=== PATIENT | male | born 1980 | race Caucasian/White ===

== ENCOUNTER 2017-10-10 17:56 | Emergency (ER) | payer MEDICARE, MEDICAID, SELFPAY ==
[2017-10-10 17:58] VITALS: BP 158/101; PULSE 97; RESP 20; TEMP 37.6; O2SAT 95; BMI 39.7
[2017-10-10 18:40] VITALS: BP 139/88; PULSE 88; RESP 17; O2SAT 95
--- NOTE | 2017-10-10 18:40 | EKG12_ITS ---
Test Reason : CP Blood Pressure : / mmHG Vent. Rate : 088 BPM Atrial Rate : 088 BPM P-R Int : 182 ms QRS Dur : 114 ms QT Int : 396 ms P-R-T Axes : 084 101 011 degrees QTc Int : 479 ms Normal sinus rhythm Nonspecific ST abnormality Abnormal ECG Confirmed by LESLEY MARRERO ([id number]), fan mail editor JONATHAN SUMMERS ([id number]) on 10/14/2017 9:33:48 AM Referred By: KRISTIE Confirmed By:LESLEY MARRERO
--- NOTE | 2017-10-10 18:45 | RAD_ITS ---
STUDY: X-RAY CHEST REASON FOR EXAM: Male, 36 years old. Dyspnea TECHNIQUE: Frontal and lateral views COMPARISON: April 20, 2016. FINDINGS: Sternotomy wires over the mediastinum. The lungs are clear and expanded. There is no demonstrated pleural abnormality. Normal size heart. Normal mediastinum and kavin. Normal visualized pulmonary arteries. Normal visualized aortic arch and descending thoracic aorta. Mild degenerative changes of the thoracic spine. Normal visualized ribs, clavicles, and shoulders. There is no demonstrated abnormality of the visualized soft tissue structures of the upper abdomen. RAD/Chest PA and Lateral IMPRESSION: Normal x-ray examination of the chest. Electronically Signed: Madi Echeverria DO at 19:07 EST Tel [phone], Service support ,
--- NOTE | 2017-10-10 18:52 | ED.VISSUMM ---
- ER Visit Summary Date of Service: 10/10/17 Chief Complaint: Last evening patient reports weakness right and left hand and weakness right and left lower extremity. He also reports 15 pound weight gain with complaint of dyspnea on exertion and orthopnea. History of Present Illness: The patient is a 36 M who has history of myocarditis and restrictive pericarditis. He underwent. Pericardiectomy secondary to restrictive pericarditis 4-4-1/2 years ago. He states the neurologic symptoms started hours after his epidural injection. He believes this was secondary to the injection and reason he did not come in last evening. He contacted Dr. Fletcher who did the injection stated that his symptoms were not a result of the injection. He reports the neurologic symptoms have resolved. He denies fever, night sweats, but does admit to chills and weight gain. He denies any chest discomfort. He does complain of dyspnea, dyspnea on exertion and orthopnea. He does report a 15 pound weight gain over the past 1+ weeks and swelling of his lower extremities. He denies any abdominal pain, nausea, vomiting or diarrhea. He denies any dysuria, frequency, urgency hematuria. He denies any myalgias arthralgias or swelling of his joints. Physical Examination: Patient's vitals are remarkable for an elevated blood pressure 158/87. He is not hypoxic. Head is atraumatic normocephalic. Pupils are equal round reactive. Extraocular muscles are intact. TMs are pearly white with landmarks noted. Nares patent with no drainage. Posterior pharynx without erythema or exudate. Uvula is midline. There is no dysphonia or dysphasia. Trachea is midline. There is no stridor with auscultation of the neck. Heart is regular without murmur, gallop or rub. S1 and S2 are normal. Lungs are clear to auscultation with good movement of air bilaterally. Abdomen is soft nontender with no paraspinal hepatosplenomegaly. There is no hepato-jugular distention. There is no JVD. There is 1+ pitting edema of both right and left lower extremity from the knee down. Patient is alert and oriented ?3. Motor is 5 over 5. Sensory is intact. DTRs are symmetric with no clonus or Babinski sign. Cranial 2 through 12 are intact. Cerebellar testing is normal. Test Results: White count is 14.7 thousand with 77 segs. Electrode panel was marked for glucose of 226. Troponin less than 0.02. BNP 19. Two-view chest x-ray interpreted by me as negative. EKG revealed a sinus rhythm with a rate of 88 and unchanged from May 16, 2014. Emergency Department Course and Treatment: EKG, chest and blood work was obtained to assess his dyspnea, dyspnea on exertion and orthopnea. CT was not obtained since he had bilateral symptoms and complained of generalized weakness and not focal symptoms. Treatment Plan: Follow-up with Dr. Rei Andrew Disposition: Discharge to home with family Impression: Dyspnea with weight gain unknown etiology Paresthesia and weakness of unknown etiology Hyperglycemia nondiabetic History of myocarditis and restrictive pericarditis This note was generated with [employer] dictation software. It may contain incorrect words, spelling, and punctuation that were not noted in review of the chart prior to signing ED Disposition - Plan for ED Patient: Disposition: Home or Assisted Living Chief Complaint: Chest Pain Instructions: ED Dyspnea Shortness of Breath, ED Hyperglycemia New Susp Diabetes, ED Weakness [facility] Referrals: Eulalio Dos Santos, [Primary Care Provider] - 3-5 Days if not improving Additional Instructions: Follow-up with Rei Anderw as needed
--- NOTE | 2017-10-10 18:57 | ED.DCSUM_ITS ---
- ER Visit Summary Date of Service: 10/10/17 Chief Complaint: Last evening patient reports weakness right and left hand and weakness right and left lower extremity. He also reports 15 pound weight gain with complaint of dyspnea on exertion and orthopnea. History of Present Illness: The patient is a 36 M who has history of myocarditis and restrictive pericarditis. He underwent. Pericardiectomy secondary to restrictive pericarditis 4-4-1/2 years ago. He states the neurologic symptoms started hours after his epidural injection. He believes this was secondary to the injection and reason he did not come in last evening. He contacted Dr. Fletcher who did the injection stated that his symptoms were not a result of the injection. He reports the neurologic symptoms have resolved. He denies fever, night sweats, but does admit to chills and weight gain. He denies any chest discomfort. He does complain of dyspnea, dyspnea on exertion and orthopnea. He does report a 15 pound weight gain over the past 1+ weeks and swelling of his lower extremities. He denies any abdominal pain, nausea, vomiting or diarrhea. He denies any dysuria, frequency, urgency hematuria. He denies any myalgias arthralgias or swelling of his joints. Physical Examination: Patient's vitals are remarkable for an elevated blood pressure 158/87. He is not hypoxic. Head is atraumatic normocephalic. Pupils are equal round reactive. Extraocular muscles are intact. TMs are pearly white with landmarks noted. Nares patent with no drainage. Posterior pharynx without erythema or exudate. Uvula is midline. There is no dysphonia or dysphasia. Trachea is midline. There is no stridor with auscultation of the neck. Heart is regular without murmur, gallop or rub. S1 and S2 are normal. Lungs are clear to auscultation with good movement of air bilaterally. Abdomen is soft nontender with no paraspinal hepatosplenomegaly. There is no hepato- jugular distention. There is no JVD. There is 1+ pitting edema of both right and left lower extremity from the knee down. Patient is alert and oriented ?3. Motor is 5 over 5. Sensory is intact. DTRs are symmetric with no clonus or Babinski sign. Cranial 2 through 12 are intact. Cerebellar testing is normal. Test Results: White count is 14.7 thousand with 77 segs. Electrode panel was marked for glucose of 226. Troponin less than 0.02. BNP 19. Two-view chest x- ray interpreted by me as negative. EKG revealed a sinus rhythm with a rate of 88 and unchanged from May 16, 2014. Emergency Department Course and Treatment: EKG, chest and blood work was obtained to assess his dyspnea, dyspnea on exertion and orthopnea. CT was not obtained since he had bilateral symptoms and complained of generalized weakness and not focal symptoms. Treatment Plan: Follow-up with Dr. Rei Andrew Disposition: Discharge to home with family Impression: Dyspnea with weight gain unknown etiology Paresthesia and weakness of unknown etiology Hyperglycemia nondiabetic History of myocarditis and restrictive pericarditis This note was generated with [employer] dictation software. It may contain incorrect words, spelling, and punctuation that were not noted in review of the chart prior to signing ED Disposition - Plan for ED Patient: Disposition: Home or Assisted Living Chief Complaint: Chest Pain Instructions: ED Dyspnea Shortness of Breath, ED Hyperglycemia New Susp Diabetes, ED Weakness [facility] Referrals: Eulalio Dos Santos, [Primary Care Provider] - 3-5 Days if not improving Additional Instructions: Follow-up with Rei Andrew as needed
[2017-10-10 18:58] LABS: Absolute Lymphocyte Count 1.91 X10^3/ul (0.83-4.51); Absolute Neutrophil Count 11.2 X10^3/uL (2.0-7.7); Basophil# 0.04 X10^3/uL; Basophil% 0.3 % (0-1); Eosinophil# 0.03 X10^3/uL; Eosinophils% 0.2 % (0-5); Hematocrit 43.2 % (40-54); Hemoglobin 15.3 g/dl (13.0-16.5); Lymphocyte # 1.91 X10^3/ul (4.0); Mean Corp Hgb Conc 35.4 g/gl (32-36); Mean Corpuscular Hgb 30.1 pg (27.0-32.0); Mean Platelet Vol. 10.7 fl (6.2-12.0); Monocyte# 1.28 X10^3/uL; Monocyte% 8.7 % (0-10); Neutrophil # 11.24 X10^3/uL (2.7-7.7); Neutrophil % 76.5 % (47-70); Platelet Count 256 K/mm3 (150-450); RBC Distribution Width SD 39.6 fl (35.1-43.9); Red Blood Count 5.08 M/mm3 (4.6-6.2); White Blood Count 14.7 K/mm3 (4.4-11.0)
[2017-10-10 18:59] LABS: POSITIVE COUNT NO; POSITIVE DIFFERENTIAL NO; POSITIVE MORPHOLOGY NO
[2017-10-10 19:22] LABS: Anion Gap 9 (5-15); BUN 11 mg/dL (7-18); BUN/Creat Ratio 11.1 RATIO (10-20); Calcium,Total 7.9 mg/dL (8.5-10.1); Chloride 100 mmol/L (98-107); Creatinine, Serum 0.99 mg/dL (0.70-1.30); EST Glomerular Filtration Rate 90 mL/min (>60); Est Glom Filt Rate - Afr Amer 109 mL/min (>60); Estimated Creatinine Clearance 106.51 ml/min; Glucose 226 mg/dL (70-110); Potassium 3.5 mmol/L (3.5-5.1); Sodium Level 138 mmol/L (136-145)
[2017-10-10 19:32] LABS: BNP,B-Type NATRIURETIC PEPTIDE 19.1 pg/mL (0-100)
[2017-10-10 19:34] VITALS: BP 125/88; PULSE 80; RESP 16; O2SAT 93
[2017-10-10 20:12] VITALS: BP 143/83; PULSE 90; RESP 23; O2SAT 95
[2017-10-10 21:07] VITALS: BP 138/60; PULSE 92; RESP 17; RESP 20; O2SAT 95; O2SAT 98
== END 2017-10-10 21:08 | disposition home or self-care (01) ==
PROVIDERS: Emergency Provider Emergency Medicine; Family Provider Student in an Organized Health Care Education/Training Program; PCP Student in an Organized Health Care Education/Training Program
DX: R06.00 Dyspnea, unspecified (principal); R63.5 Abnormal weight gain; R20.2 Paresthesia of skin; R53.1 Weakness; R73.9 Hyperglycemia, unspecified; Z86.79 Personal history of other diseases of the circulatory system; Z87.891 Personal history of nicotine dependence; Z79.82 Long term (current) use of aspirin; Z79.899 Other long term (current) drug therapy
CPT/HCPCS: 71046; 80048; 83880; 84484; 85025; 93005; 99285; A4216

== ENCOUNTER 2017-11-08 22:58 | Emergency (ER) | payer MEDICARE, MEDICAID, SELFPAY ==
[2017-11-08 22:59] VITALS: BP 150/103; PULSE 77; RESP 15; TEMP 36.8; O2SAT 95; BMI 38.0
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
[2017-11-08] MEDS: Lidocaine/Epi/Tetracaine 50 ML 1 APPLIC TOPICAL (23:30)
[2017-11-09] MEDS: Diphth,Pertuss(Acell),Tet Vac 0.5 ML Vial IM (00:04)
--- NOTE | 2017-11-09 00:08 | ED.DEP ---
ED Disposition - Plan for ED Patient: Disposition: Home or Assisted Living Chief Complaint: Upper Extremity Injury Instructions: ED Laceration Hand Referrals: Eulalio Dos Santos DO [Primary Care Provider] - 10 Day for suture removal Additional Instructions: Keep hand wound clean. Clean daily with soap and water or peroxide and water. Apply antibiotic ointment once daily. Return if any signs of infection such as pus, redness or swelling. Suture removal in 10 days.
[2017-11-09 00:26] VITALS: PULSE 76; RESP 16; O2SAT 98
== END 2017-11-09 00:27 | disposition home or self-care (01) ==
PROVIDERS: Emergency Provider Emergency Medicine; Family Provider Student in an Organized Health Care Education/Training Program; PCP Student in an Organized Health Care Education/Training Program
DX: S61.412A Laceration without foreign body of left hand, initial encounter (principal); Z23 Encounter for immunization; W32.0XXA Accidental handgun discharge, initial encounter; Y93.89 Activity, other specified; Y92.008 Other place in unspecified non-institutional (private) residence as the place of occurrence of the external cause; Y99.8 Other external cause status
CPT/HCPCS: 12002; 90471; 90715; 99284

== ENCOUNTER 2018-06-17 16:39 | Emergency (ER) | payer MEDICARE, SELFPAY ==
[2018-06-17 16:39] VITALS: BP 139/97; PULSE 92; RESP 16; TEMP 36.1; O2SAT 98; BMI 38.2
--- NOTE | 2018-06-17 17:12 | RAD_ITS ---
STUDY: X-RAY - RIGHT ANKLE REASON FOR EXAM: Male, 37 years old. Pain TECHNIQUE: 3 view(s) of the ankle. COMPARISON: None. FINDINGS: Normal visualized distal tibia and fibula. Normal medial and lateral malleoli. Normal tibiotalar articulation and ankle mortise. Normal visualized talus and calcaneus. The visualized subtalar, talonavicular, calcaneocuboid and tarsal articulations are normal. The soft tissue structures are unremarkable. RAD/Ankle min 3 Views IMPRESSION: Normal x-ray examination of the ankle. Electronically Signed: Liam Rajput MD at 17:34 EDT , Service support ,
--- NOTE | 2018-06-17 17:12 | RAD_ITS ---
STUDY: X-RAY - RIGHT TIBIA AND FIBULA REASON FOR EXAM: Male, 37 years old. Pain TECHNIQUE: 3 view(s) of the tibia and fibula were obtained. COMPARISON: None. FINDINGS: Normal visualized tibia. Normal visualized fibula. The soft tissue structures are unremarkable. RAD/Tibia & Fibula 2 Views IMPRESSION: Normal x-ray examination of the tibia and fibula. Electronically Signed: Liam Rajput MD at 17:34 EDT , Service support ,
--- NOTE | 2018-06-17 17:13 | ED.VISSUMM ---
- ER Visit Summary Date of Service: 06/17/18 Chief Complaint: Right ankle injury History of Present Illness: The patient is a 37 M who presents for right ankle injury that occurred prior to presentation. Patient missed the last step in his basement, rolling his ankle and hitting his elbow against the wall. He was able to bear weight afterwards but states it felt really funny. He has pain and swelling in the right ankle and just distal to the right knee. He also scraped his elbow. He denies any other injuries, including head trauma, neck or back pain. He has a history of a prior right tibia fracture and states this feels very similar. Patient has history of congestive heart failure. He is not on any blood thinners. Physical Examination: Patient is well-nourished well-developed sitting in bed in no distress. Afebrile and hemodynamically stable. Full range of motion of the upper extremities., Small abrasion without any hemorrhage to the right posterior elbow. No deformities. Right lower extremity shows mild deformity and swelling over the lateral malleolus. Tenderness to the posterior edge of the lateral and medial malleolus. DP pulses are 2+ and symmetric. Abrasion to the right proximal anterior tibia. No tenderness to palpation or deformity of the right knee. No abnormalities to examination of the left lower extremity. Station and motor function are intact bilaterally. Patient is able to fully extend the right leg and lifted off the bed. Test Results: Clinical Impression(s) from Imaging Studies Ankle X-Ray 06/17/18 17:12 IMPRESSION: Normal x-ray examination of the ankle. Electronically Signed: Liam Rajput MD at 17:34 EDT , Service support , Tibia/Fibula X-Ray 06/17/18 17:12 IMPRESSION: Normal x-ray examination of the tibia and fibula. Electronically Signed: Liam Rajput MD at 17:34 EDT , Service support , Emergency Department Course and Treatment: Patient was offered and declined pain medications. Ice pack was applied to the right ankle. Imaging was performed and showed no fracture of the tib-fib or the ankle. Because patient has findings concerning for a severe sprain, he was placed in a walking boot. He has established care with a investment representative who managed his prior ankle fracture, and he will follow-up with this doctor within the next few days. Patient was discharged home. Treatment Plan: [] Disposition: [] Impression: Right ankle sprain This note was generated with [employer] dictation software. It may contain incorrect words, spelling, and punctuation that were not noted in review of the chart prior to signing ED Disposition - Plan for ED Patient: Disposition: Home or Assisted Living Chief Complaint: Lower Extremity Injury Instructions: ED Sprain Ankle W X Ray Referrals: Eulalio Dos Santos DO [Primary Care Provider] - Kameron Carrillo DPM [STAFF PHYSICIAN] - 3-5 Days Additional Instructions: Keep your leg elevated and ice it 3-4 times a day for 15 minutes each time. Wear the walking boot for comfort. Follow-up with your investment representative this week for reevaluation. Use [id number] pain medication as needed for pain. If you have any worsening of your condition or any new concerning symptoms, please return immediately to the emergency department for another evaluation.
--- NOTE | 2018-06-17 18:37 | ED.DEP ---
ED Disposition - Plan for ED Patient: Disposition: Home or Assisted Living Chief Complaint: Lower Extremity Injury Instructions: ED Sprain Ankle W X Ray Referrals: Eulalio Dos Santos DO [Primary Care Provider] - Kameron Carrillo DPM [STAFF PHYSICIAN] - 3-5 Days Additional Instructions: Keep your leg elevated and ice it 3-4 times a day for 15 minutes each time. Wear the walking boot for comfort. Follow-up with your information systems administrator this week for reevaluation. Use [id number] pain medication as needed for pain. If you have any worsening of your condition or any new concerning symptoms, please return immediately to the emergency department for another evaluation.
== END 2018-06-17 18:56 | disposition home or self-care (01) ==
PROVIDERS: Emergency Provider Emergency Medicine; Family Provider Student in an Organized Health Care Education/Training Program; PCP Student in an Organized Health Care Education/Training Program
DX: S93.401A Sprain of unspecified ligament of right ankle, initial encounter (principal); S50.311A Abrasion of right elbow, initial encounter; X50.1XXA Overexertion from prolonged static or awkward postures, initial encounter; W22.09XA Striking against other stationary object, initial encounter; Y93.9 Activity, unspecified; Y92.008 Other place in unspecified non-institutional (private) residence as the place of occurrence of the external cause; I50.9 Heart failure, unspecified; Z79.82 Long term (current) use of aspirin; Z79.899 Other long term (current) drug therapy
CPT/HCPCS: 73590; 73610; 99283

== ENCOUNTER 2020-08-17 23:01 | Emergency (ER) | payer MEDICARE, SELFPAY ==
[2020-08-17 23:02] VITALS: BP 175/114; PULSE 90; RESP 16; TEMP 36.4; O2SAT 100; BMI 37.3
--- NOTE | 2020-08-17 23:09 | ED.VIS.GEN ---
History of Present Illness Chief Complaint: Upper Extremity Injury Informant: Patient Onset: Yesterday Context: Gradual Onset Timing: Continuous Current Severity: Moderate Maximum Severity: Moderate Narrative: Patient is a 39-year-old male with history of CHF presents to the emergency department with right forearm injury. Patient states he was in [place]. He states he slipped and fell. He landed striking his forearm on a rock. Since then, has had some pain. He states it hurts to move. He denies any head injury. He denies any nausea or vomiting. He denies any other systemic symptoms. He is otherwise been in his normal state of health. Prior similar symptoms: No Recent Illness/Hospitalization: No Past Medical History - Allergies and Home Meds Allergies/Adverse Reactions: Allergies adhesive Adverse Reaction (Verified 08/17/20 23:04) Unknown CONTRAST DYE FOR MRI Allergy (Uncoded 08/17/20 23:04) Hives Primary Care Physician: Eulalio Dos Santos DO [Primary Care Provider] - Prior records reviewed: Yes Past Medical History: - - CHF, hypertension Surgical History: noncontributory Smoking Status: Never smoker - Family History Maternal Family History: Reports: No pertinent history Review of Systems General: Denies: Chills, Fever, Sweats Eyes: Denies: Visual changes - bilaterally, Diplopia ENT: Denies: Rhinorrhea, Sore throat Cardiovascular: Denies: Chest pain, Palpitations Respiratory: Denies: Dyspnea, Cough, Dyspnea on exertion Gastrointestinal: Denies: Abdominal pain, Nausea, Vomiting, Diarrhea, Melena, Hematochezia Genitourinary: Denies: Dysuria, Hematuria, Frequency Musculoskeletal: Reports: Myalgias. Denies: Back pain, Extremity Pain Skin: Denies: Rash, Wounds Neurological: Denies: Headache, Weakness, Numbness Physical Exam Vital Signs/Narrative: Vital Signs Temp Pulse Resp BP Pulse Ox 08/17/20 23:02 97.6 F L 90 16 175/114 H 100 Inital Vital Signs reviewed: Yes General: Well nourished, Well developed, No Acute Distress Head: Normocephalic, Atraumatic Eyes: Perrl, EOMI ENT: Moist mucous membranes, No rhinorrhea Neck: Supple, Nontender Cardiovascular: Regular rate, Regular rhythm, No murmurs Respiratory: No distress, CTA bilaterally, Chest nontender Abdomen: Soft, Nontender, Nondistended, Normal bowel sounds Back: Nontender, Normal Inspection Extremities: No edema, Tenderness - Tenderness over the right lateral forearm. Small hematoma. Normal pulses. Pain with palpation of motion. Compartments soft. Skin: Normal color, No rash Neurological: Alert, Oriented x3, Cranial nerves II-XII grossly intact, Normal Strength, Normal Sensation Psychological: Normal affect, Normal Mood Diagnostic/Tx/Re-eval - Medical Decision Making Patient presents with forearm injury. He has no evidence of compartment syndrome. His pulses are normal. Sensation is preserved. Plain films were obtained of the forearm. They were reviewed by myself and the radiologist. There is no evidence of acute fracture dislocation. I do feel her symptoms are secondary to contusion. Patient will continue ice and elevation. He will be discharged. Impression 1. Right forearm contusion ED Disposition - Plan for ED Patient: Instructions: ED Contusion, Upper Extremity Referrals: Eulalio Dos Santos DO [Primary Care Provider] -
--- NOTE | 2020-08-17 23:10 | RAD_ITS ---
STUDY: X-RAY - RIGHT RADIUS AND ULNA REASON FOR EXAM: Male, 39 years old. FALL. TECHNIQUE: 2 view(s) of the forearm. COMPARISON: None. FINDINGS: There is visualized mild soft tissue edema. Normal visualized radius. Normal visualized ulna. RAD/Forearm 2 Views IMPRESSION: There is mild soft tissue edema. There is no visualized fracture. Electronically Signed: Sapphire Liz MD at 23:28 EST Tel , Service support ,
[2020-08-17 23:15] VITALS: BP 151/96; PULSE 82; RESP 16; O2SAT 98
== END 2020-08-17 23:36 | disposition home or self-care (01) ==
LOC: ED 23:33
PROVIDERS: Emergency Provider Emergency Medicine; PCP Student in an Organized Health Care Education/Training Program
DX: S50.11XA Contusion of right forearm, initial encounter (principal); W01.0XXA Fall on same level from slipping, tripping and stumbling without subsequent striking against object, initial encounter
CPT/HCPCS: 73090; 99282

== ENCOUNTER → 2020-09-28 14:32 | Outpatient (CLI) | payer MEDICARE, SELFPAY ==
[2020-09-28 17:14] LABS: Amphetamine Urine VISTA NEGATIVE (<1000 ng/mL); Barbiturate Urine VISTA NEGATIVE (< 200 ng/mL); Benzodiazepine Urine VISTA NEGATIVE (< 200 ng/mL); Cocaine Urine VISTA NEGATIVE (< 300 ng/mL); Ecstacy Urine VISTA NEGATIVE (< 500 ng/mL); Methadone Urine VISTA NEGATIVE (< 300 ng/mL); PCP Urine VISTA NEGATIVE (< 25 ng/mL); THC Urine VISTA NEGATIVE (< 50 ng/mL); Vista UDS pH Range 6
== END ==
PROVIDERS: PCP Student in an Organized Health Care Education/Training Program; Visit Provider Anesthesiology Pain Medicine
DX: F11.20 Opioid dependence, uncomplicated (principal)
CPT/HCPCS: 80307

== ENCOUNTER 2021-12-16 11:14 | Emergency (ER) | payer MEDICARE, SELFPAY ==
[2021-12-16 11:15] VITALS: BP 184/114; PULSE 78; RESP 16; TEMP 36.4; O2SAT 98; BMI 38.0
--- NOTE | 2021-12-16 11:37 | EDS_ITS ---
HPI <ADEN Camacho - Last Filed: 12/16/21 11:43> History of Present Illness Chief Complaint: Upper Extremity Injury Narrative Narrative: 41-year-old male with a significant heart history presents the emerge part with left forearm pain. Patient was doing some construction, he lifted a 2 x 4 and felt a pull to his left forearm. Patient states that the pain is getting much worse and is here for evaluation. Patient denies any other trauma, patient states that Motrin and Tylenol was hurting worse. Patient has difficulty letting is not having as well as performing random movements with his left arm. PFSH <ADEN Camacho - Last Filed: 12/16/21 11:43> PFS Home Medications carvedilol 25 mg PO BID 09/22/13 [History Last Taken Unknown] gabapentin 300 mg PO 4X/DAY 09/22/13 [History Last Taken Unknown] lisinopril 5 mg PO DAILY 09/22/13 [History Last Taken Unknown] probenecid-colchicine 0.6 mg PO BID 09/22/13 [History Last Taken Unknown] spironolactone 25 mg PO BID 09/22/13 [History Last Taken Unknown] fentanyl 25 mcg TRANSDERM. Q72H 05/16/14 [History Last Taken Unknown] Ibuprofen [Motrin] 800 mg PO TID PRN PRN 04/20/16 [History Last Taken Unknown] Potassium Chloride [Klor-Con M20] 20 meq PO DAILY 04/20/16 [History Last Taken Unknown] aspirin 81 mg PO DAILY 04/20/16 [History Last Taken Unknown] fluoxetine 20 mg PO DAILY 04/20/16 [History Last Taken Unknown] fluticasone propionate 2 spray NASAL DAILY 04/20/16 [History Last Taken Unknown] melatonin 5 mg PO QHS 04/20/16 [History Last Taken Unknown] cyclobenzaprine 10 mg PO TID 10/10/17 [History Last Taken Unknown] ezetimibe 10 mg PO DAILY 10/10/17 [History Last Taken Unknown] pravastatin 80 mg PO QHS 10/10/17 [History Last Taken Unknown] trazodone 150 mg PO QHS 10/10/17 [History Last Taken Unknown] naproxen [Naprosyn] 500 mg PO BID PRN #20 tab 12/16/21 [Rx Last Taken Unknown] Allergy/AdvReac Type Severity Reaction Status Date / Time adhesive AdvReac Unknown Verified 12/16/21 11:16 CONTRAST DYE FOR MRI Allergy Hives Uncoded 12/16/21 11:16 Social History Smoking Status: Former smoker ROS <ADEN Camacho - Last Filed: 12/16/21 11:43> ROS ED ROS Narrative Constitutional: Negative for fever, chills, weight loss or gain, weakness Eyes: Negative for vision loss, vision change, double vision ENT: Negative for any hearing changes, ringing in the ears, discharge, pain Nose: Negative for any congestion, runny nose, sinus pain, allergies Throat: Negative for any sore throat, swelling, voice changes, Cardiovascular: Negative for any chest pain, tightness, palpitations, racing heartbeat Respiratory: Negative for any cough, sputum production, hemoptysis, shortness of breath, shortness of breath on exertion, Gastrointestinal: Negative for any abdominal pain, nausea, vomiting, diarrhea, constipation, blood in stool, blood in vomit : Negative for any urinary frequency, incontinence, dysuria, retention, blood in urine Muscle skeletal: Negative for any muscle joint pain, stiffness, myalgias, arthralgias, neck pain, back pain. Positive for left forearm pain Neurological: Negative for any headache, dizziness, syncope, numbness or tingling Skin: Negative for any rashes, lumps, itching, abrasions, lacerations Psychiatric: Negative for any depression, anxiety, stress, suicidal ideation, homicidal ideation Hematologic: Negative for any easy bruising, excessive bruising, easy bleeding Allergies: Negative for any eczema, hives, rash EXAM <ADEN Camacho - Last Filed: 12/16/21 11:43> Physical Exam Const Vital Signs: 12/16/21 11:15 Temperature 97.6 F L Temperature Source Temporal Pulse Rate 78 Respiratory Rate 16 Blood Pressure 184/114 H Blood Pressure Mean 137 Pulse Ox 98 Oxygen Delivery Method Room Air Positive well nourished and well developed General Appearance ED: well developed HEENT normocephalic and atraumatic Eyes PERRL and EOMs intact bilaterally Neck full ROM and supple Chest Wall inspection of chest normal Resp normal respiratory effort and clear to auscultation bilaterally Cardio regular rate, regular rhythm and no murmurs GI non-tender and non-distended Auscultation: normoactive bowel sounds Palpation: soft Back/Spine no CVA tenderness Extremity full ROM Extremity Narrative: Patient has tenderness to the anterior forearm worse along the radial aspect. Around the antecubital area. Patient is able to flex at the elbow with no discomfort. Patient has full range of motion of his hand and fingers. Patient has +2 radial pulse. Patient's physical examination is consistent with a muscle strain. Negative for any ecchymosis, edema. Negative for any compartmentalized syndromes. Neuro oriented x3 Sensorium / Orientation: alert and oriented to person [facility] <ADEN Camacho - Last Filed: 12/16/21 11:43> [facility] Narrative Medical decision making narrative: Patient appears well, patient appears nontoxic, vital signs are stable. Patient presents the emerge department with left forearm pain. Patient's physical examination is consistent with a muscle strain, negative for any osseous abnormality, I do not believe that radiologic exams are necessary. Patient be given a pain medicine here, patient be given a prescription for anti-inflammatories, a sling. Patient will perform gentle stretching, ice heat and follow-up with orthopedics as needed. Patient struck to rest the extremity instructed return if any worsening symptoms. Negative for any neurological focal deficits Lab Data Attestation: I reviewed the patient's lab results. <Dr. Drake Jang MD - Last Filed: 12/16/21 11:47> [facility] Narrative Medical decision making narrative: I have personally performed a face to face assessment of the patient and have reviewed the LUIS Note. I performed a substantive portion of the visit including all aspects of the following. My benito findings include: History is [41-year-old male after lifting a piece of wood felt a pop and pulling and discomfort in his proximal left forearm. He is right-hand dominant. No prior surgery. No other trauma. Complaining of pain.] Exam is [well-appearing middle-aged male. No acute distress. Blood pressure elevated. Lungs are clear. Heart regular rhythm. Left forearm he has tenderness on the proximal palmar flexor muscles of his forearm. He has 5 out of 5 media assistant strength in his left hand. Normal radial pulse. He has full flexion- extension of his left elbow. He has normal range of motion to his shoulder. There is no bony deformity. No dislocation. Mild soft tissue tenderness consistent with a myofascial strain. There is no deficit like a torn muscle.] Medical Decision Making [ice. Anti-inflammatories follow-up if not improving.] Other additions or changes: [None] Discharge Plan Triage Chief Complaint: Upper Extremity Injury ED Midlevel Provider: Kenyon Nolasco ED Provider: Drake Jang Dx/Rx/DC Orders Clinical Impression: Muscle strain of forearm Instructions: ED Muscle Strain, Extremity Prescriptions: New naproxen [Naprosyn] 500 mg tablet 500 mg PO BID PRN (Reason: pain) Qty: 20 RF: 0 No Action carvedilol 25 MG tablet 25 mg PO BID RF: 0 probenecid-colchicine 1 EACH tablet 0.6 mg PO BID RF: 0 spironolactone 25 MG tablet 25 mg PO BID RF: 0 gabapentin 300 MG capsule 300 mg PO 4X/DAY RF: 0 lisinopril 5 MG tablet 5 mg PO DAILY RF: 0 fentanyl 25 MCG patch 25 mcg TRANSDERM. Q72H RF: 0 aspirin 81 MG tablet,chewable 81 mg PO DAILY RF: 0 fluoxetine 20 MG capsule 20 mg PO DAILY RF: 0 fluticasone propionate 1 SPRAY spray,suspension 2 spray NASAL DAILY RF: 0 melatonin 5 MG capsule 5 mg PO QHS RF: 0 Ibuprofen [Motrin] 800 MG tablet 800 mg PO TID PRN PRN (Reason: Pain) RF: 0 Potassium Chloride [Klor-Con M20] 20 MEQ Tab.Er.Prt 20 meq PO DAILY RF: 0 cyclobenzaprine 10 MG tablet 10 mg PO TID RF: 0 pravastatin 80 MG tablet 80 mg PO QHS RF: 0 trazodone 150 MG tablet 150 mg PO QHS RF: 0 ezetimibe 10 MG tablet 10 mg PO DAILY RF: 0 Primary Care Provider: Eulalio Dos Santos Referrals: Eulalio Dos Santos DO [Primary Care Provider] - Felipe Nichols DO [STAFF PHYSICIAN] - 3-5 Days if not improving Activity Restrictions/Additional Instructions: Please ice the extremity, rest. Use anti-inflammatory Print Language: Kyrgyz Disposition Disposition: Home, Self Care
[2021-12-16] MEDS: oxyCODONE 5 MG Tablet PO (11:50)
== END 2021-12-16 11:52 | disposition home or self-care (01) ==
LOC: ED 11:45
PROVIDERS: Emergency Provider Emergency Medicine; PCP Student in an Organized Health Care Education/Training Program; Visit Provider Emergency Medicine
DX: S56.912A Strain of unspecified muscles, fascia and tendons at forearm level, left arm, initial encounter (principal); X58.XXXA Exposure to other specified factors, initial encounter; Z87.891 Personal history of nicotine dependence
CPT/HCPCS: 99283

== ENCOUNTER 2022-01-17 07:28 | Day surgery (SDC) | payer MEDICARE, SELFPAY ==
--- NOTE | 2022-01-16 06:48 | RAD_ITS ---
STUDY: X-RAY CHEST REASON FOR EXAM: Male, 41 years old. PRE-OP TECHNIQUE: PA and lateral views of the chest. COMPARISON: Comparison is made with prior study dated 10/10/2017. FINDINGS: The lungs are clear and expanded. There is no demonstrated pleural abnormality. Sternal cerclage wires are present from a prior sternotomy. A loop recorder device is seen overlying the left cardiac border. Normal mediastinum and kavin. Normal visualized pulmonary arteries. Normal visualized aortic arch and descending thoracic aorta. Normal visualized thoracic spine. Normal visualized ribs, clavicles, and shoulders. There is no demonstrated abnormality of the visualized soft tissue structures of the upper abdomen. RAD/Chest PA and Lateral IMPRESSION: No acute abnormality is seen. Stable examination. Electronically Signed: Ezekiel Lora MD at 14:26 EDT ,
[2022-01-16 07:29] LABS: Hematocrit 47.5 % (40-54); Hemoglobin 16.4 g/dL (13.0-16.5); Mean Corp Hgb Conc 34.5 g/dL (32-36); Mean Corpuscular Hgb 31.4 pg (27.0-32.0); Platelet Count 248 K/mm3 (150-450); RBC Distribution Width CV 13.2 % (11.6-14.6); RBC Distribution Width SD 44.1 fl (35.1-43.9); Red Blood Count 5.22 M/mm3 (4.6-6.2); White Blood Count 7.8 K/mm3 (4.4-11.0)
[2022-01-16 08:00] LABS: Anion Gap 6 (5-15); BUN 13 mg/dL (7-18); BUN/Creat Ratio 13.4 RATIO (10-20); Chloride 107 mmol/L (98-107); Creatinine, Serum 0.97 mg/dL (0.70-1.30); EST Glomerular Filtration Rate 90 mL/min (>60); Est Glom Filt Rate - Afr Amer 109 mL/min (>60); Glucose 104 mg/dL (74-106); Potassium 4.2 mmol/L (3.5-5.1); Sodium Level 138 mmol/L (136-145)
[2022-01-17] VITALS (11 sets, daily range): BP systolic 111–173; BP diastolic 62–106; PULSE 65–88; RESP 16–18; TEMP 36.5–36.7; O2SAT 94–96; BMI 39.6
[2022-01-17] MEDS: Lactated Ringers 1,000 ML 15 ML IV (08:04)
--- NOTE | 2022-01-17 11:34 | PCM.DC ---
Discharge Instructions Follow Up Care Test Results: Test results from this visit will be discussed in further detail at your follow-up appointment, if applicable. Discharge Plan Admission Attending Provider: Matt Armstrong Primary Care Provider: Eulalio Dos Santos Instructions Additional Instructions / Restrictions: Follow preprinted instructions from your surgeons office. Discharge Orders/Prescriptions Prescriptions: New oxycodone 5 mg tablet 5 mg PO Q4H PRN (Reason: pain) 7 Days Qty: 42 RF: 0 Continued carvedilol 25 MG tablet 25 mg PO BID RF: 0 spironolactone 25 MG tablet 25 mg PO BID RF: 0 gabapentin 300 MG capsule 300 mg PO 4X/DAY RF: 0 lisinopril 5 MG tablet 5 mg PO DAILY RF: 0 aspirin 81 MG tablet,chewable 81 mg PO DAILY RF: 0 fluoxetine 20 MG capsule 20 mg PO DAILY RF: 0 fluticasone propionate 1 SPRAY spray,suspension 2 spray NASAL DAILY RF: 0 melatonin 5 MG capsule 5 mg PO QHS RF: 0 Ibuprofen [Motrin] 800 MG tablet 800 mg PO TID PRN PRN (Reason: Pain) RF: 0 Potassium Chloride [Klor-Con M20] 20 MEQ Tab.Er.Prt 20 meq PO DAILY RF: 0 cyclobenzaprine 10 MG tablet 10 mg PO DAILY RF: 0 pravastatin 80 MG tablet 80 mg PO QHS RF: 0 trazodone 150 MG tablet 150 mg PO QHS RF: 0 ezetimibe 10 MG tablet 10 mg PO DAILY RF: 0 torsemide 20 mg tablet 60 mg PO 1200 RF: 0 omeprazole 20 mg Tablet,Delayed Release (Dr/Ec) 20 mg PO DAILY RF: 0 Referrals / Follow Up: Eulalio Dos Santos DO [Primary Care Provider] - Matt Armstrong DO [STAFF PHYSICIAN] - Within 2 Weeks Disposition Disposition (needs filled in before D/C Order can be placed): Home, Self Care
[2022-01-17] MEDS: oxyCODONE 5 MG Tablet PO (14:00)
--- NOTE | 2022-01-17 20:56 | PCM.OPRPT ---
Report of Operation Date of Procedure: 01/17/22 Description of Surgical Findings:: Preoperative diagnosis: Left distal biceps tendon rupture Postoperative diagnosis: Left distal biceps tendon rupture Procedure: Left distal biceps tendon repair Surgeon: Matt Armstrong DO [employer] Supervisor: Natalie Vizcarra PA-C Anesthesia: General LMA Anesthesiologist: Dr. Leal Complications: None apparent Drains: None Estimated blood loss: 10 cc Urinary output: None measured IV fluids: 700 cc crystalloid Specimens: None Surgical implants: Arthrex 7 mm tenodesis screw PEEK, Arthrex biceps button Surgical indications: This is a 41-year-old male seen in the outpatient setting diagnosed with a left distal biceps tendon rupture which was sustained with a work-related injury approximately 4 weeks ago. MRI confirmed the diagnosis. I recommended surgical intervention in the form of repair of left distal biceps tendon. The risks, benefits, alternatives to procedure were reviewed with patient at length in the outpatient setting and he agreed to proceed. Risks included but were not limited to bleeding, infection, loss of life or limb, risk of anesthesia, persistent paresthesias, neurovascular injury, persistent pain, need for additional surgery, tendon rerupture, stiffness, loss of hand or elbow function. Patient expressed understanding wish to proceed with surgery. Informed consent obtained in the office. Description of procedure: Patient was seen in preoperative holding area. Patient was identified by name, medical record number, date of . The operative extremity was marked with a surgical marker. We confirmed informed consent with the patient and all questions were answered to the patient's satisfaction. At time of his procedure, patient was brought to the operative suite and positioned supine a standard operating table. All bony prominences were well-padded. General anesthesia was induced and endotracheal tube placed. The hand table attached to the right side of the table. We spun the bed 90 degrees. A well-padded pneumatic tourniquet was applied to left upper brachium. We then prepped and draped the left upper extremity in normal, sterile orthopedic fashion. 2 g Ancef was administered prior to incision by anesthesia staff. We performed a timeout at this point confirming side, site, and operation to be performed. No concerns voiced and elected to proceed. Left upper extremity was then exsanguinated with Esmarch bandage. Tourniquet was inflated 250 mmHg remained up for approximately 30 minutes. An oblique incision was made ulnar to brachial radialis approximately 2 cm distal to the elbow volar crease. Skin and subcutaneous tissue was dissected sharply with a 15 blade scalpel. I then bluntly dissected in the subcutaneous plane and identified the lateral antebrachial cutaneous nerve. This was protected throughout the case. I then bluntly dissected down to the level of the radial tuberosity. There were several fibers left intact of the distal biceps however the majority of the tendon was retracted approximately 2 cm. I used a benito elevator to elevate the remainder of the fibers of the tendon and retreated from the wound with a Allis clamp. I debrided the end of the tendon with significant mop ends and tendinosis noted. This was debrided to a healthy tendon stump. I then performed a whipstitch with a #2 FiberWire. I then selected a point in the central portion of the radial tuberosity and drilled bicortically with a vendor supplied pin for the biceps button. I then utilized a 8 mm cannulated reamer to ream the near cortex of the radial tuberosity. I passed the sutures from the tendon through the biceps button sequentially. The ends of the suture were then passed through the distal portion of the tendon to eliminate creep in the distal tendon. The button was then passed bicortically, flipped to engage the far cortex of the radius. Tendon was able to be dunked nicely into the tenodesis site. Sutures were then tied over top of the tendon. I then placed a peek screw on the radial aspect of the tendon with excellent cortical purchase to reinforce the repair. Sutures were then cut proximal to the screw. The tourniquet was then deflated. Hemostasis was excellent. A field block was administered with 10 cc 0.75% plain Marcaine. Dermis was reapproximated buried 3-0 Vicryl suture and skin was closed with running subcuticular 4-0 Monocryl with Dermabond. Sterile compression dressing and simple sling was then applied. Patient tolerated procedure well without apparent complication. Patient was transferred to PACU in stable condition. Need for skilled aquatics assistant department head: Natalie Vizcarra PA-C was critical to the outcome of the case. During the course of the procedure the physician aquatics assistant department head played a vital role. Her intimate knowledge of my steps in the procedure aided in safe and expedient completion of the procedure. The PA played a vital role in positioning particularly in obtaining the appropriate positioning. The PA was also vital in the retraction of soft tissues during the exposure and protecting vital structures. She also played a vital role in closure with my direct supervision Post Operative Plan: Weightbearing: Nonweightbearing operative extremity, range of motion as tolerated Antibiotics: Ancef 2 g x 1 dose preoperatively DVT Prophylaxis: Aspirin 81 mg twice daily to start tomorrow for 2 weeks Pack: None Dressing: Okay to shower on postoperative day #2. X-Rays: None Pain Medication: Oxycodone Rx upon discharge Follow-up: 2 weeks post-operatively with me in the office. Plan to initiate physical therapy at 2 weeks for range of motion. No strengthening until 6 weeks postoperatively.
== END 2022-01-17 15:04 | disposition home or self-care (01) ==
LOC: SDC 07:29 → AC 07:29
PROVIDERS: PCP Student in an Organized Health Care Education/Training Program; Referring Provider Student in an Organized Health Care Education/Training Program; Visit Provider Student in an Organized Health Care Education/Training Program
PROC: (CPT 24341; principal; 2022-01-17 08:40)
DX: S46.292A Other injury of muscle, fascia and tendon of other parts of biceps, left arm, initial encounter (principal); I11.0 Hypertensive heart disease with heart failure; I50.9 Heart failure, unspecified; X50.0XXA Overexertion from strenuous movement or load, initial encounter; Y93.89 Activity, other specified; Y99.9 Unspecified external cause status; Y92.9 Unspecified place or not applicable; E66.8 Other obesity; F17.210 Nicotine dependence, cigarettes, uncomplicated; Z68.39 Body mass index [BMI] 39.0-39.9, adult; Z79.899 Other long term (current) drug therapy; Z79.82 Long term (current) use of aspirin; E78.00 Pure hypercholesterolemia, unspecified; G47.30 Sleep apnea, unspecified; F41.9 Anxiety disorder, unspecified; K21.9 Gastro-esophageal reflux disease without esophagitis; G25.81 Restless legs syndrome
CPT/HCPCS: 24341; 01710; 36415; 71046; 80048; 85027; 87426; C9803; J7120; J2405

== ENCOUNTER → 2022-05-24 | Outpatient (CLI) | payer MEDICARE, SELFPAY | END | disposition home or self-care (01) | LOC: LABSPEC 16:03 | PROVIDERS: PCP Student in an Organized Health Care Education/Training Program; Visit Provider Specialist | DX: M25.531 Pain in right wrist (principal); S63.501A Unspecified sprain of right wrist, initial encounter; S60.211A Contusion of right wrist, initial encounter | CPT/HCPCS: 87015; 87070; 87075; 87101; 87116; 87205; 87206 ==

== ENCOUNTER → 2022-06-26 | Outpatient (CLI) | payer MEDICARE, SELFPAY ==
[2022-06-26 12:30] LABS: Absolute Lymphocyte Count 2.08 X10^3/uL (0.83-4.51); Absolute Neutrophil Count 6.8 X10^3/uL (2.0-7.7); Basophil# 0.05 X10^3/uL; Basophil% 0.5 % (0-1); Eosinophil# 0.22 X10^3/uL; Eosinophils% 2.2 % (0-5); Hematocrit 48.8 % (40-54); Hemoglobin 16.6 g/dL (13.0-16.5); Lymphocyte # 2.08 X10^3/ul (0.83-4.51); Mean Corpuscular Hgb 29.5 pg (27.0-32.0); Mean Corpuscular Volume 86.7 fL (80-94); Mean Platelet Vol. 10.9 fl (6.2-12.0); Monocyte% 7.1 % (0-10); NRBC Flagged by Analyzer 0 % (0-5); Neutrophil # 6.78 X10^3/uL (2.7-7.7); Neutrophil % 68.3 % (47-70); Platelet Count 289 K/mm3 (150-450); RBC Distribution Width CV 13.1 % (11.6-14.6); Red Blood Count 5.63 M/mm3 (4.6-6.2); White Blood Count 9.9 K/mm3 (4.4-11.0)
[2022-06-26 12:43] LABS: ALB/GLOB Ratio 0.9 RATIO (0.9-2.4); AST(SGOT) 9 U/L (15-37); Alanine Aminotransfer ALT/SGPT 28 U/L (16-61); Albumin, Serum 3.9 g/dL (3.2-5.0); Alkaline Phosphatase 115 U/L (45-117); Anion Gap 8 (5-15); BUN 11 mg/dL (7-18); BUN/Creat Ratio 13.9 RATIO (10-20); Calcium,Total 9.5 mg/dL (8.5-10.1); Chloride 103 mmol/L (98-107); Creatinine, Serum 0.79 mg/dL (0.70-1.30); EST Glomerular Filtration Rate 114 mL/min (>60); Est Glom Filt Rate - Afr Amer 138 mL/min (>60); Globulin 4.4 g/dL (2.2-4.2); Glucose 95 mg/dL (74-106); Potassium 4.1 mmol/L (3.5-5.1); Protein, Total 8.3 g/dL (6.4-8.2); Rheumatoid Factor < 10.0 IU/mL (<15); Sodium Level 135 mmol/L (136-145)
[2022-06-26 13:21] LABS: Hepatitis B Surface Antibody Non-Reactive; Hepatitis B Surface Antigen Non-Reactive (Nonreactive); Hepatitis C Antibody Non-Reactive (Nonreactive)
[2022-07-01 16:09] LABS: QNTFERON TB Mitogen Value > 10.00 IU/mL (.); QNTFERON TB Nil Value 0.02 IU/mL (.); QNTFERON TB1+ Ag Value 0.04 IU/mL (.); QNTFERON TB2+ Ag Value 0.02 IU/mL (.)
[2022-07-01 18:04] LABS: CCP IgG Antibodies 2 units (0-19); QNTIFERON TB Positive Criteria Negative (Negative)
== END | disposition home or self-care (01) ==
LOC: MTLAB 09:56
PROVIDERS: PCP Student in an Organized Health Care Education/Training Program; Referring Provider Internal Medicine Rheumatology; Visit Provider Internal Medicine Rheumatology
DX: M06.4 Inflammatory polyarthropathy (principal); I50.9 Heart failure, unspecified; E78.5 Hyperlipidemia, unspecified
CPT/HCPCS: 36415; 80053; 85025; 86200; 86431; 86480; 86706; 86803; 87340

== ENCOUNTER → 2022-08-27 | Outpatient (CLI) | payer MEDICARE, SELFPAY ==
[2022-08-27 15:48] LABS: Absolute Lymphocyte Count 2.42 X10^3/uL (0.83-4.51); Basophil# 0.04 X10^3/uL; Basophil% 0.4 % (0-1); Eosinophil# 0.21 X10^3/uL; Eosinophils% 2.2 % (0-5); Hematocrit 48.9 % (40-54); Hemoglobin 16.5 g/dL (13.0-16.5); Lymphocyte # 2.42 X10^3/ul (0.83-4.51); Lymphocyte % 25.1 % (19-41); Mean Corp Hgb Conc 33.7 g/dL (32-36); Mean Corpuscular Hgb 29.1 pg (27.0-32.0); Mean Corpuscular Volume 86.2 fL (80-94); Mean Platelet Vol. 10.5 fl (6.2-12.0); Monocyte# 0.87 X10^3/uL; NRBC Flagged by Analyzer 0 % (0-5); Neutrophil # 5.99 X10^3/uL (2.7-7.7); Platelet Count 332 K/mm3 (150-450); RBC Distribution Width SD 46.8 fl (35.1-43.9); Red Blood Count 5.67 M/mm3 (4.6-6.2); White Blood Count 9.7 K/mm3 (4.4-11.0)
[2022-08-27 16:39] LABS: ALB/GLOB Ratio 0.9 RATIO (0.9-2.4); AST(SGOT) 12 U/L (15-37); Alanine Aminotransfer ALT/SGPT 29 U/L (16-61); Albumin, Serum 3.8 g/dL (3.2-5.0); Alkaline Phosphatase 89 U/L (45-117); Anion Gap 5 (5-15); BUN 13 mg/dL (7-18); BUN/Creat Ratio 15.5 RATIO (10-20); Calcium,Total 9.2 mg/dL (8.5-10.1); Chloride 107 mmol/L (98-107); Creatinine, Serum 0.84 mg/dL (0.70-1.30); EST Glomerular Filtration Rate 107 mL/min (>60); Est Glom Filt Rate - Afr Amer 129 mL/min (>60); Globulin 4.1 g/dL (2.2-4.2); Glucose 106 mg/dL (74-106); Potassium 4.3 mmol/L (3.5-5.1); Protein, Total 7.9 g/dL (6.4-8.2); Sodium Level 138 mmol/L (136-145)
== END | disposition home or self-care (01) ==
LOC: LAB 15:14
PROVIDERS: PCP Student in an Organized Health Care Education/Training Program; Visit Provider Internal Medicine Rheumatology
DX: M06.4 Inflammatory polyarthropathy (principal); I11.0 Hypertensive heart disease with heart failure; I50.9 Heart failure, unspecified; E78.5 Hyperlipidemia, unspecified; K21.9 Gastro-esophageal reflux disease without esophagitis; F32.A Depression, unspecified; G47.33 Obstructive sleep apnea (adult) (pediatric); G47.419 Narcolepsy without cataplexy; Z86.79 Personal history of other diseases of the circulatory system; Z79.899 Other long term (current) drug therapy
CPT/HCPCS: 36415; 80053; 85025

== ENCOUNTER → 2022-10-29 | Outpatient (CLI) | payer MEDICARE, SELFPAY ==
[2022-10-29 15:54] LABS: Absolute Lymphocyte Count 2.39 X10^3/uL (0.83-4.51); Absolute Neutrophil Count 8.7 X10^3/uL (2.0-7.7); Basophil# 0.07 X10^3/uL; Basophil% 0.6 % (0-1); Eosinophils% 1.6 % (0-5); Hematocrit 51.5 % (40-54); Hemoglobin 17.4 g/dL (13.0-16.5); Lymphocyte # 2.39 X10^3/ul (0.83-4.51); Lymphocyte % 19.4 % (19-41); Mean Corp Hgb Conc 33.8 g/dL (32-36); Mean Corpuscular Hgb 30.2 pg (27.0-32.0); Mean Corpuscular Volume 89.3 fL (80-94); Mean Platelet Vol. 10.3 fl (6.2-12.0); Monocyte# 0.83 X10^3/uL; Monocyte% 6.7 % (0-10); NRBC Flagged by Analyzer 0 % (0-5); Neutrophil # 8.66 X10^3/uL (2.7-7.7); Neutrophil % 70.3 % (47-70); Platelet Count 286 K/mm3 (150-450); RBC Distribution Width CV 14.8 % (11.6-14.6); RBC Distribution Width SD 48.4 fl (35.1-43.9); Red Blood Count 5.77 M/mm3 (4.6-6.2); White Blood Count 12.3 K/mm3 (4.4-11.0)
[2022-10-29 16:35] LABS: AST(SGOT) 20 U/L (15-37); Alanine Aminotransfer ALT/SGPT 41 U/L (16-61); Alkaline Phosphatase 82 U/L (45-117); Anion Gap 7 (5-15); BUN 9 mg/dL (7-18); BUN/Creat Ratio 8.3 RATIO (10-20); Calcium,Total 9.2 mg/dL (8.5-10.1); Chloride 108 mmol/L (98-107); Creatinine, Serum 1.09 mg/dL (0.70-1.30); EST Glomerular Filtration Rate 79 mL/min (>60); Est Glom Filt Rate - Afr Amer 95 mL/min (>60); Glucose 106 mg/dL (74-106); Potassium 3.9 mmol/L (3.5-5.1); Sodium Level 138 mmol/L (136-145)
== END | disposition home or self-care (01) ==
LOC: LAB 15:39
PROVIDERS: PCP Student in an Organized Health Care Education/Training Program; Referring Provider Internal Medicine Rheumatology; Visit Provider Internal Medicine Rheumatology
DX: M06.4 Inflammatory polyarthropathy (principal); I11.0 Hypertensive heart disease with heart failure; I50.9 Heart failure, unspecified; E78.5 Hyperlipidemia, unspecified; K21.9 Gastro-esophageal reflux disease without esophagitis; F32.A Depression, unspecified; G47.33 Obstructive sleep apnea (adult) (pediatric); G47.419 Narcolepsy without cataplexy; Z86.79 Personal history of other diseases of the circulatory system; Z79.899 Other long term (current) drug therapy
CPT/HCPCS: 36415; 80053; 85025

== ENCOUNTER → 2022-12-27 | Outpatient (CLI) | payer MEDICARE, SELFPAY ==
[2022-12-27 13:55] LABS: Absolute Lymphocyte Count 2.19 X10^3/uL (0.83-4.51); Absolute Neutrophil Count 4.8 X10^3/uL (2.0-7.7); Basophil# 0.05 X10^3/uL; Basophil% 0.6 % (0-1); Eosinophil# 0.17 X10^3/uL; Eosinophils% 2.1 % (0-5); Hematocrit 49.6 % (40-54); Hemoglobin 16.8 g/dL (13.0-16.5); Lymphocyte # 2.19 X10^3/ul (0.83-4.51); Lymphocyte % 27.7 % (19-41); Mean Corp Hgb Conc 33.9 g/dL (32-36); Mean Corpuscular Hgb 30.3 pg (27.0-32.0); Mean Corpuscular Volume 89.4 fL (80-94); Monocyte# 0.66 X10^3/uL; Monocyte% 8.3 % (0-10); NRBC Flagged by Analyzer 0 % (0-5); Neutrophil # 4.77 X10^3/uL (2.7-7.7); Neutrophil % 60.3 % (47-70); Platelet Count 259 K/mm3 (150-450); RBC Distribution Width CV 13.2 % (11.6-14.6); RBC Distribution Width SD 43.4 fl (35.1-43.9); Red Blood Count 5.55 M/mm3 (4.6-6.2); White Blood Count 7.9 K/mm3 (4.4-11.0)
[2022-12-27 14:33] LABS: ALB/GLOB Ratio 1.1 RATIO (0.9-2.4); AST(SGOT) 15 U/L (15-37); Alanine Aminotransfer ALT/SGPT 37 U/L (16-61); Albumin, Serum 3.9 g/dL (3.2-5.0); Alkaline Phosphatase 89 U/L (45-117); Anion Gap 7 (5-15); BUN 10 mg/dL (7-18); BUN/Creat Ratio 11.2 RATIO (10-20); Calcium,Total 9.1 mg/dL (8.5-10.1); Chloride 108 mmol/L (98-107); Creatinine, Serum 0.89 mg/dL (0.70-1.30); EST Glomerular Filtration Rate 100 mL/min (>60); Est Glom Filt Rate - Afr Amer 120 mL/min (>60); Globulin 3.5 g/dL (2.2-4.2); Glucose 107 mg/dL (74-106); Potassium 3.5 mmol/L (3.5-5.1); Protein, Total 7.4 g/dL (6.4-8.2); Sodium Level 138 mmol/L (136-145)
== END | disposition home or self-care (01) ==
LOC: LAB 12:36
PROVIDERS: PCP Student in an Organized Health Care Education/Training Program; Referring Provider Internal Medicine Rheumatology; Visit Provider Internal Medicine Rheumatology
DX: M06.4 Inflammatory polyarthropathy (principal); Z79.899 Other long term (current) drug therapy
CPT/HCPCS: 36415; 80053; 85025

== ENCOUNTER → 2023-04-03 | Outpatient (CLI) | payer MEDICARE, SELFPAY ==
[2023-04-03 11:56] LABS: Absolute Lymphocyte Count 2.33 X10^3/uL (0.83-4.51); Absolute Neutrophil Count 5.7 X10^3/uL (2.0-7.7); Basophil# 0.05 X10^3/uL; Basophil% 0.6 % (0-1); Eosinophil# 0.15 X10^3/uL; Eosinophils% 1.7 % (0-5); Hematocrit 50.3 % (40-54); Hemoglobin 16.9 g/dL (13.0-16.5); Lymphocyte # 2.33 X10^3/ul (0.83-4.51); Lymphocyte % 25.6 % (19-41); Mean Corp Hgb Conc 33.6 g/dL (32-36); Mean Corpuscular Hgb 29.3 pg (27.0-32.0); Mean Corpuscular Volume 87.2 fL (80-94); Mean Platelet Vol. 10.8 fl (6.2-12.0); Monocyte# 0.74 X10^3/uL; Monocyte% 8.1 % (0-10); NRBC Flagged by Analyzer 0 % (0-5); Neutrophil # 5.69 X10^3/uL (2.7-7.7); Neutrophil % 62.6 % (47-70); Platelet Count 235 K/mm3 (150-450); RBC Distribution Width CV 13.2 % (11.6-14.6); RBC Distribution Width SD 41.7 fl (35.1-43.9); Red Blood Count 5.77 M/mm3 (4.6-6.2); White Blood Count 9.1 K/mm3 (4.4-11.0)
[2023-04-03 12:34] LABS: AST(SGOT) 16 U/L (15-37); Alanine Aminotransfer ALT/SGPT 45 U/L (16-61); Albumin, Serum 3.9 g/dL (3.2-5.0); Alkaline Phosphatase 73 U/L (45-117); Anion Gap 7 (5-15); BUN 15 mg/dL (7-18); BUN/Creat Ratio 19.9 RATIO (10-20); Calcium,Total 8.9 mg/dL (8.5-10.1); Chloride 108 mmol/L (98-107); Creatinine, Serum 0.75 mg/dL (0.70-1.30); EST Glomerular Filtration Rate 120 mL/min (>60); Est Glom Filt Rate - Afr Amer 146 mL/min (>60); Globulin 3.9 g/dL (2.2-4.2); Glucose 91 mg/dL (74-106); Potassium 3.8 mmol/L (3.5-5.1); Protein, Total 7.8 g/dL (6.4-8.2); Sodium Level 138 mmol/L (136-145)
== END | disposition home or self-care (01) ==
LOC: LAB 11:26
PROVIDERS: PCP Student in an Organized Health Care Education/Training Program; Referring Provider Internal Medicine Rheumatology; Visit Provider Internal Medicine Rheumatology
DX: M06.09 Rheumatoid arthritis without rheumatoid factor, multiple sites (principal); I11.0 Hypertensive heart disease with heart failure; I50.9 Heart failure, unspecified; Z79.899 Other long term (current) drug therapy
CPT/HCPCS: 36415; 80053; 85025